=== PATIENT | female | born 1950 | race Caucasian/White ===

== ENCOUNTER 2024-01-23 08:44 | Emergency (ER) | payer BC, MEDICAID ==
[~2024-01-23] VITALS: Ht 170.2 cm; Wt 128.6 kg
[~2024-01-23 08:44] MED LIST: ADV50250 IH; ALB0.5UD IH; CLOP75TA34 PO; ESOM40CA PO; FLUO20CA39 PO; FURO40TA4 PO; LEVA15HF4 IH; LISI-222 PO; METF500T PO; NICO-631 TD; POTA8TAB46 PO; PRED10TA23 PO; SIMV-42 PO; THEO200C4 PO; TIOT18CA7 IH
[2024-01-23 09:15] VITALS: TEMP 97.9
[2024-01-23 10:28] LABS: BASOPHILS % (AUTO) 0.3 % (0-1); EOSINOPHILS % (AUTO) 0.2 % (0-6); HEMATOCRIT 26.3 % (35.0-45.0); HEMOGLOBIN 8.4 g/dl (12.0-16.0); LYMPHOCYTES % (AUTO) 9.7 % (21-51); MEAN CORPUSCULAR HEMOGLOBIN 29.6 PG (27.0-31.0); MEAN CORPUSCULAR HGB CONC 31.9 g/dL (33.0-36.5); MEAN CORPUSCULAR VOLUME 92.7 FL (78-98); MEAN PLATELET VOLUME 7.5 FL (7.4-10.4); MONOCYTES # (AUTO) 0.7 X10'3 (0-0.9); MONOCYTES % (AUTO) 6.3 % (2-12); NEUTROPHILS % (AUTO) 83.5 % (42-75); PLATELET COUNT 376 X10'3 (140-440); RED BLOOD COUNT 2.83 X10'6 (4.20-5.60); RED CELL DISTRIBUTION WIDTH 17.5 % (11.5-14.5); WHITE BLOOD COUNT 10.8 X10'3 (4.5-11.0)
[2024-01-23 10:38] LABS: ALANINE AMINOTRANSFERASE 20 U/L (12-78); ALBUMIN 3.3 G/DL (3.4-5.0); ALBUMIN/GLOBULIN RATIO 0.9 (1.1-1.5); ALKALINE PHOSPHATASE 93 IU/L (46-116); ANION GAP 6 (8-16); ASPARTATE AMINO TRANSFERASE 10 U/L (10-37); BILIRUBIN,TOTAL 0.3 MG/DL (0.1-1.0); BLOOD UREA NITROGEN 35 MG/DL (7-18); BUN/CREATININE RATIO 14.5 (10.0-20.0); CALCIUM 9.1 MG/DL (8.5-10.1); CHLORIDE 102 MMOL/L (99-107); CREATININE 2.42 MG/DL (0.40-0.90); GLUCOSE 115 MG/DL (70-104); LIPASE 22 U/L (16-77); SODIUM 138 MMOL/L (135-145); TOTAL CARBON DIOXIDE 30.1 MMOL/L (24-32); TOTAL PROTEIN 7.1 G/DL (6.4-8.2); eCRCL 20 ML/MIN; eGFR 20 ML/MIN
[2024-01-23 11:15] LABS: PLATELET ESTIMATE NORMAL; TOTAL CELLS COUNTED 100
[2024-01-23 11:16] LABS: ANISOCYTOSIS 1+; STOMATOCYTES 1+
[2024-01-23 11:32] LABS: CLARITY,URINE CLOUDY (Clear); COLOR,URINE RED (Yellow); UA COLLECTION TYPE CLN CATCH MIDSTREAM
[2024-01-23 11:47] LABS: SQUAMOUS EPITHELIAL CELL,UR FEW /LPF (FEW)
[2024-01-23 11:48] LABS: RBC,URINE TNTC /HPF (0-2); WBC CLUMPS,URINE FEW /HPF (NEGATIVE)
[2024-01-23 11:49] LABS: BACTERIA,URINE NONE SEEN /HPF (Neg)
[2024-01-23 14:30] VITALS: BP 130/53; PULSE 91; RESP 18; O2SAT 100
== END 2024-01-23 17:15 | disposition home or self-care (01) ==
LOC: ER 08:45
DX: N13.30 Unspecified hydronephrosis (principal); R31.9 Hematuria, unspecified; N18.9 Chronic kidney disease, unspecified; I25.10 Atherosclerotic heart disease of native coronary artery without angina pectoris; I25.2 Old myocardial infarction; J44.9 Chronic obstructive pulmonary disease, unspecified; Z90.710 Acquired absence of both cervix and uterus; Z60.2 Problems related to living alone; Z88.2 Allergy status to sulfonamides
CPT/HCPCS: 36415; 74176; 80053; 81001; 83690; 85007; 85025; 87088; 99284